=== PATIENT | male | born 1970 | race Caucasian/White ===

== ENCOUNTER → 2019-06-27 | Outpatient (CLI) | payer BC, OTHER | LOC: ZCOL.LAB 17:19 | DX: Z22.322 Carrier or suspected carrier of Methicillin resistant Staphylococcus aureus (principal) ==

== ENCOUNTER → 2019-09-07 | Outpatient (CLI) | payer BC, OTHER | LOC: ZCOL.LAB 08:41 | DX: Z86.14 Personal history of Methicillin resistant Staphylococcus aureus infection (principal) ==